=== PATIENT | male | born 1990 | race Caucasian/White ===

== ENCOUNTER 2017-11-18 21:55 | Inpatient (IN) | payer SELFPAY ==
[~2017-11-18] VITALS: Ht 167.6 cm; Wt 59.0 kg
[~2017-11-18 21:55] MED LIST: INSU3INS3
[2017-11-18] MEDS ORDERED: MORPHINE SULFATE 4 MG/ML CPJ (NOT FOR IM USE) IV STA (22:55)
[2017-11-18] MEDS ORDERED: ONDANSETRON HCL 4MG/2ML VIAL IV STA (22:55)
[2017-11-18] MEDS ORDERED: PANTOPRAZOLE SODIUM 40 MG/VIAL IV STA (22:55)
[2017-11-18] MEDS ORDERED: SODIUM CHLORIDE 0.9% 1,000 ML IV ONE (22:55)
[2017-11-18] MEDS ORDERED: OCTREOTIDE ACETATE 50 MCG/ML 1ML IV ONE (23:00)
[2017-11-19 00:26] LABS: BASOPHILS % 0.3 % (0.0-2.0); HEMATOCRIT. 44.2 % (42.0-52.0); HEMOGLOBIN. 15.4 g/dL (14.0-18.0); LYMPHOCYTES % 11.2 % (20.0-50.0); MEAN CORPUSCULAR HEMOGLOBIN 28.4 pg (28.0-32.0); MEAN CORPUSCULAR VOLUME 81.4 fL (80.0-94.0); MEAN PLATELET VOLUME 7.6 fl (7.4-10.4); MONOCYTES % 2.5 % (2.0-8.0); PLATELET 410 x1000/uL (130-400); RED BLOOD CELL COUNT 5.43 mill/uL (4.7-6.1); RED CELL DISTRIBUTION WIDTH 13.6 % (11.6-14.6)
[2017-11-19 00:31] LABS: CHLORIDE 92 mEq/L (98-107)
[2017-11-19 00:35] LABS: ETHANOL BLOOD < 10 mg/dL
[2017-11-19 00:41] LABS: BETA HYDROXYBUTYRATE 1.8 mMol/L (0.0-0.3)
[2017-11-19 01:41] LABS: *AMPHETAMINES SCREEN URINE NEGATIVE (NEGATIVE); *BARBITURATES SCREEN URINE NEGATIVE (NEGATIVE); *BENZODIAZEPINES SCREEN URINE NEGATIVE (NEGATIVE)
[2017-11-19 01:42] LABS: *COCAINE SCREEN URINE NEGATIVE (NEGATIVE); CANNABINOID URINE SCREEN NEGATIVE (NEGATIVE); METHADONE URINE SCREEN NEGATIVE (NEGATIVE); OPIATES URINE SCREEN NEGATIVE (NEGATIVE); PHENCYCLIDINE URINE SCREEN NEGATIVE (NEGATIVE)
[2017-11-19] MEDS ORDERED: SODIUM CHLORIDE 0.9% 1000ML BAG (SEPSIS BOLUS) IV ONE (02:15)
[2017-11-19] MEDS ORDERED: INSULIN REGULAR (HUMULIN R) 300UNITS/3ML IV ONE (02:15)
[2017-11-19 08:00] VITALS: BP 149/96
[2017-11-19] MEDS ORDERED: DEXTROSE 50% WATER 50ML SYRINGE IV PRN (08:30)
[2017-11-19] MEDS ORDERED: ACETAMINOPHEN 325MG TABLET PO PRN (08:30)
[2017-11-19] MEDS ORDERED: CLONIDINE 0.1MG TABLET PO PRN (08:30)
[2017-11-19] MEDS ORDERED: ACETAMINOPHEN 650MG SUPP PR PRN (08:30)
[2017-11-19] MEDS ORDERED: IPRATROPIUM/ALBUTEROL 0.5-3(2.5)MG/3ML NEB INH PRN (08:30)
[2017-11-19] MEDS ORDERED: DIPHENHYDRAMINE 50MG/ML VIAL IV PRN (08:30)
[2017-11-19] MEDS ORDERED: NA PHOS,M-B/NA PHOS,DI-BA ENEMA 118ML PR PRN (08:30)
[2017-11-19] MEDS ORDERED: ONDANSETRON HCL 4MG/2ML VIAL IV PRN (08:30)
[2017-11-19] MEDS ORDERED: GUAIFENESIN 200MG/10ML SUGAR FREE UDC PO PRN (08:30)
[2017-11-19] MEDS ORDERED: ACETAMINOPHEN 650MG/20.3ML UDC GT PRN (08:30)
[2017-11-19] MEDS ORDERED: MAGNESIUM/ALUMINUM HYDROXIDE/SIMETHICONE 30ML UDC PO PRN (08:30)
[2017-11-19 09:11] LABS: BASOPHILS % 0.4 % (0.0-2.0); EOSINOPHILS % 0.1 % (0.0-5.0); HEMATOCRIT. 40.9 % (42.0-52.0); LYMPHOCYTES % 19.5 % (20.0-50.0); MEAN CORPUSCULAR HEMOGLOBIN 27.9 pg (28.0-32.0); MEAN CORPUSCULAR VOLUME 81.6 fL (80.0-94.0); MEAN PLATELET VOLUME 7.3 fl (7.4-10.4); MONOCYTES % 6.2 % (2.0-8.0); NEUTROPHILS % 73.8 % (40.0-76.0); PLATELET 363 x1000/uL (130-400); RED BLOOD CELL COUNT 5.01 mill/uL (4.7-6.1); RED CELL DISTRIBUTION WIDTH 13.6 % (11.6-14.6)
[2017-11-19] MEDS ORDERED: DOCUSATE SODIUM 100MG CAPSULE PO PRN (09:15)
[2017-11-19] MEDS: HYDROCODONE/ACETAMINOPHEN 5/325MG TABLET PO PRN ×2 (09:17→16:00)
[2017-11-19] MEDS: BLOOD SUGAR DIAGNOSTIC STRIP TEST SCH ×4 (09:21→22:41)
[2017-11-19 09:24] LABS: CHLORIDE 99 mEq/L (98-107)
[2017-11-19] MEDS: INSULIN LISPRO 100 UNITS/ML SUBCUT SCH ×4 (09:38→21:00)
[2017-11-19] MEDS: SODIUM CHLORIDE 0.45% 1,000 ML IV SCH (09:55)
[2017-11-19 10:00] VITALS: BP 149/96
[2017-11-19 12:00] VITALS: BP 140/80
[2017-11-19] MEDS: SODIUM CHLORIDE 0.9% INJ 3ML FLUSH IVF SCH ×2 (14:00→22:43)
[2017-11-19 16:00] VITALS: BP 130/70
[2017-11-19] MEDS: PANTOPRAZOLE SODIUM 40 MG/VIAL IV SCH (17:39)
[2017-11-19] MEDS: METOCLOPRAMIDE HCL 10MG/2ML VIAL IV SCH ×2 (18:26→23:33)
[2017-11-19 20:00] VITALS: BP 104/70
[2017-11-20] VITALS: BP 103/89
[2017-11-20 04:00] VITALS: BP 148/93
[2017-11-20] MEDS: SODIUM CHLORIDE 0.9% INJ 3ML FLUSH IVF SCH (05:46)
[2017-11-20] MEDS: HYDROCODONE/ACETAMINOPHEN 5/325MG TABLET PO PRN ×2 (05:46→12:42)
[2017-11-20] MEDS: METOCLOPRAMIDE HCL 10MG/2ML VIAL IV SCH ×2 (05:46→12:40)
[2017-11-20 06:13] LABS: BASOPHILS % 0.5 % (0.0-2.0); EOSINOPHILS % 0.3 % (0.0-5.0); HEMATOCRIT. 41.5 % (42.0-52.0); HEMOGLOBIN. 14.1 g/dL (14.0-18.0); LYMPHOCYTES % 27.7 % (20.0-50.0); MEAN CORPUSCULAR HEMOGLOBIN 27.8 pg (28.0-32.0); MEAN CORPUSCULAR VOLUME 81.8 fL (80.0-94.0); MEAN PLATELET VOLUME 7.5 fl (7.4-10.4); MONOCYTES % 6.3 % (2.0-8.0); NEUTROPHILS % 65.2 % (40.0-76.0); PLATELET 336 x1000/uL (130-400); RED BLOOD CELL COUNT 5.07 mill/uL (4.7-6.1); RED CELL DISTRIBUTION WIDTH 13.3 % (11.6-14.6)
[2017-11-20] MEDS: BLOOD SUGAR DIAGNOSTIC STRIP TEST SCH ×2 (07:13→12:26)
[2017-11-20 07:27] LABS: CHLORIDE 94 mEq/L (98-107)
[2017-11-20 07:35] LABS: HDL CHOLESTEROL 51 mg/dL (40-59); LDL CHOLESTEROL 107 mg/dL (5-100)
[2017-11-20 08:00] VITALS: BP 132/90
[2017-11-20] MEDS: INSULIN LISPRO 100 UNITS/ML SUBCUT SCH ×2 (08:19→12:47)
[2017-11-20] MEDS: PANTOPRAZOLE SODIUM 40 MG/VIAL IV SCH (08:20)
[2017-11-20] MEDS: SODIUM CHLORIDE 0.45% 1,000 ML IV SCH (09:33)
[2017-11-20 12:00] VITALS: BP 146/97
[2017-11-20 12:42] VITALS: BP 146/97
== END 2017-11-20 14:50 | disposition left against medical advice (07) | DRG 241 ==
LOC: ER 21:55 → 6EST 11-19 02:32 → EDBEDREQ 11-19 02:40 → ENRESERV 11-19 07:01 → CANBEDREQ 11-19 23:49
PROVIDERS: ADMIT Family Medicine; ATTEND Family Medicine
DX: K29.71 Gastritis, unspecified, with bleeding (principal); K31.84 Gastroparesis; E11.43 Type 2 diabetes mellitus with diabetic autonomic (poly)neuropathy; E86.0 Dehydration; Z79.4 Long term (current) use of insulin; Z53.21 Procedure and treatment not carried out due to patient leaving prior to being seen by health care provider
CPT/HCPCS: 36415; 71045; 74176; 80053; 80061; 80305; 82010; 82962; 83036; 83605; 83690; 83880; 84484; 85025; 85044; 86850; 86900; 93005; 96361; 96374; 96375; 99291; C9113; G0482; J1815; J2270; J2354; J2405; J2765; J7030

== ENCOUNTER 2018-04-04 13:40 | Emergency (ER) | payer MEDICAID ==
[~2018-04-04] VITALS: Ht 172.7 cm; Wt 70.0 kg
[2018-04-04] MEDS ORDERED: METOCLOPRAMIDE HCL 10MG/2ML VIAL IV STA (14:23)
[2018-04-04] MEDS ORDERED: SODIUM CHLORIDE 0.9% 1,000 ML IV ONE (14:23)
[2018-04-04] MEDS ORDERED: FAMOTIDINE 20MG/2ML VIAL IV STA (14:23)
[2018-04-04] MEDS ORDERED: DIPHENHYDRAMINE 50MG/ML VIAL IV ONE (14:30)
[2018-04-04 15:34] LABS: BASOPHILS % 0.4 % (0.0-2.0); EOSINOPHILS % 0.6 % (0.0-5.0); HEMATOCRIT. 41.8 % (42.0-52.0); HEMOGLOBIN. 14.4 g/dL (14.0-18.0); LYMPHOCYTES % 15.2 % (20.0-50.0); MEAN CORPUSCULAR HEMOGLOBIN 28.5 pg (28.0-32.0); MEAN PLATELET VOLUME 7.8 fl (7.4-10.4); MONOCYTES % 5.3 % (2.0-8.0); NEUTROPHILS % 78.5 % (40.0-76.0); PLATELET 356 x1000/uL (130-400); RED BLOOD CELL COUNT 5.04 mill/uL (4.7-6.1); RED CELL DISTRIBUTION WIDTH 13.6 % (11.6-14.6)
[2018-04-04 15:38] LABS: CHLORIDE 96 mEq/L (98-107)
[2018-04-04 15:47] LABS: BETA HYDROXYBUTYRATE 0.1 mMol/L (0.0-0.3)
[2018-04-04] MEDS ORDERED: SODIUM CHLORIDE 0.9% 1000ML BAG (SEPSIS BOLUS) IV ONE (16:00)
[2018-04-04] MEDS ORDERED: KETOROLAC 30MG/ML VIAL IV NR (16:45)
[2018-04-04] MEDS ORDERED: ONDANSETRON HCL 4MG/2ML INJ IV NR (16:45)
[2018-04-04 19:39] LABS: CLARITY URINE CLEAR (CLEAR); COLOR URINE YELLOW (YELLOW); KETONES URINE TRACE (NEGATIVE); LEUKOCYTE ESTERASE URINE NEGATIVE (NEGATIVE); NITRITE URINE NEGATIVE (NEGATIVE); OCCULT BLOOD URINE NEGATIVE (NEGATIVE); PH URINE 7.5 (4.5-8.0); PROTEIN URINE NEGATIVE (NEGATIVE); SPECIFIC GRAVITY URINE 1.038 (1.005-1.030)
[2018-04-04 21:24] VITALS: BP 129/82
== END 2018-04-04 21:28 | disposition home or self-care (01) ==
LOC: ER 13:58
DX: E11.43 Type 2 diabetes mellitus with diabetic autonomic (poly)neuropathy (principal); K31.84 Gastroparesis; E86.0 Dehydration; Z79.4 Long term (current) use of insulin
CPT/HCPCS: 36415; 80053; 81003; 82010; 82962; 83605; 83690; 85025; 96361; 96374; 96375; 99285; J1200; J1885; J2405; J2765; J3490; J7030

== ENCOUNTER 2018-10-22 00:41 | Emergency (ER) | payer SELFPAY ==
[~2018-10-22] VITALS: Ht 172.7 cm; Wt 62.0 kg
[2018-10-22] MEDS ORDERED: ONDANSETRON HCL 4MG/2ML INJ IV STA (01:33)
[2018-10-22] MEDS ORDERED: SODIUM CHLORIDE 0.9% 1,000 ML IV ONE (01:33)
[2018-10-22] MEDS ORDERED: KETAMINE HCL 50 MG/ML 10ML IV ONE (01:45)
[2018-10-22 02:13] LABS: BASOPHILS % 0.3 % (0.0-2.0); EOSINOPHILS % 0.1 % (0.0-5.0); HEMOGLOBIN. 14.2 g/dL (14.0-18.0); LYMPHOCYTES % 18.2 % (20.0-50.0); MEAN CORPUSCULAR HEMOGLOBIN 28.1 pg (28.0-32.0); MEAN CORPUSCULAR VOLUME 83.3 fL (80.0-94.0); MEAN PLATELET VOLUME 7.6 fl (7.4-10.4); MONOCYTES % 6.4 % (2.0-8.0); PLATELET 320 x1000/uL (130-400); RED BLOOD CELL COUNT 5.04 mill/uL (4.7-6.1); RED CELL DISTRIBUTION WIDTH 13.7 % (11.6-14.6)
[2018-10-22 02:14] LABS: CHLORIDE 97 mEq/L (98-107)
[2018-10-22 06:27] VITALS: BP 116/76
== END 2018-10-22 06:30 | disposition home or self-care (01) ==
LOC: ER 00:41
DX: E11.43 Type 2 diabetes mellitus with diabetic autonomic (poly)neuropathy (principal); K31.84 Gastroparesis; Z79.4 Long term (current) use of insulin
CPT/HCPCS: 36415; 80053; 82962; 83690; 85025; 96361; 96374; 96375; 99283; J2405; J3490; J7030; Z7610

== ENCOUNTER 2021-03-29 02:41 | Emergency (ER) | payer MEDICAID ==
[~2021-03-29] VITALS: Ht 172.7 cm; Wt 80.0 kg
[2021-03-29] MEDS ORDERED: MORPHINE SULFATE 4 MG/ML CPJ (NOT FOR IM USE) IV STA (03:20)
[2021-03-29] MEDS ORDERED: ONDANSETRON HCL 4MG/2ML INJ IV STA (03:20)
[2021-03-29] MEDS ORDERED: SODIUM CHLORIDE 0.9% 1,000 ML IV ONE ×2 (03:30→04:30)
[2021-03-29 03:38] LABS: BASOPHILS % 0.3 % (0.0-2.0); EOSINOPHILS % 0.3 % (0.0-5.0); HEMATOCRIT. 41.9 % (42.0-52.0); HEMOGLOBIN. 13.7 g/dL (14.0-18.0); LYMPHOCYTES % 25.2 % (20.0-50.0); MEAN CORPUSCULAR HEMOGLOBIN 26.2 pg (28.0-32.0); MEAN CORPUSCULAR VOLUME 80.2 fL (80.0-94.0); MEAN PLATELET VOLUME 7.7 fl (7.4-10.4); MONOCYTES % 4.7 % (2.0-8.0); NEUTROPHILS % 69.5 % (40.0-76.0); PLATELET 314 x1000/uL (130-400); RED BLOOD CELL COUNT 5.22 mill/uL (4.7-6.1); RED CELL DISTRIBUTION WIDTH 14.5 % (11.6-14.6)
[2021-03-29 03:43] LABS: CHLORIDE 97 mEq/L (98-107)
[2021-03-29 03:48] LABS: BG BASE EXCESS 2.8 mmol/L (-2.0-2.0); BG CARBOXYHEMOGLOBIN 0.8 % (0.5-1.5); BG HCO3 ACT 27.8 mmol/L (22.0-26.0); BG METHEMOGLOBIN 0.3 % (0.0-1.5); BG OXYGEN SATURATION 94.9 % (92.0-98.5); BG OXYHEMOGLOBIN 93.9 % (94.0-97.0); BG PCO2 44.2 mmHg (35.0-45.0); BG PH 7.417 (7.350-7.450); BG PO2 75.4 mmHg (75.0-100.0); BG SAMPLE SITE RIGHT RADIAL; BG TOTAL HEMOGLOBIN 14.4 g/dL (12.0-18.0); BG VENT MODE ROOM AIR
[2021-03-29] MEDS ORDERED: MORPHINE SULFATE 2 MG/ML CPJ (NOT FOR IM USE) IV SCH (04:00)
[2021-03-29] MEDS ORDERED: INSULIN REGULAR (HUMULIN R) 300UNITS/3ML VIAL IV ONE (04:30)
[2021-03-29] MEDS ORDERED: ONDANSETRON HCL 4MG/2ML INJ IV ONE (05:45)
[2021-03-29 06:44] VITALS: BP 169/99
== END 2021-03-29 07:16 | disposition home or self-care (01) ==
LOC: ER 02:41
DX: R11.2 Nausea with vomiting, unspecified (principal); R10.84 Generalized abdominal pain; E11.9 Type 2 diabetes mellitus without complications
CPT/HCPCS: 36415; 36600; 80053; 82375; 82805; 82962; 83690; 85025; 93005; 96361; 96374; 96375; 96376; 99284; J1815; J2270; J2405; J7030

== ENCOUNTER 2021-04-01 12:45 | Inpatient (IN) | payer MEDICAID, OTHER ==
[~2021-04-01] VITALS: Ht 167.6 cm; Wt 67.6 kg
[2021-04-01] MEDS ORDERED: ONDANSETRON HCL 4MG/2ML INJ IV STA (13:13)
[2021-04-01] MEDS ORDERED: MORPHINE SULFATE 4 MG/ML CPJ (NOT FOR IM USE) IV STA (13:13)
[2021-04-01] MEDS ORDERED: SODIUM CHLORIDE 0.9% 1,000 ML IV ONE (13:15)
[2021-04-01 13:59] LABS: BASOPHILS % 0.3 % (0.0-2.0); EOSINOPHILS % 0.4 % (0.0-5.0); HEMATOCRIT. 42.8 % (42.0-52.0); HEMOGLOBIN. 14.4 g/dL (14.0-18.0); LYMPHOCYTES % 31.5 % (20.0-50.0); MEAN CORPUSCULAR HEMOGLOBIN 26.4 pg (28.0-32.0); MEAN CORPUSCULAR VOLUME 78.7 fL (80.0-94.0); MEAN PLATELET VOLUME 7.4 fl (7.4-10.4); MONOCYTES % 6.4 % (2.0-8.0); NEUTROPHILS % 61.4 % (40.0-76.0); PLATELET 276 x1000/uL (130-400); RED BLOOD CELL COUNT 5.45 mill/uL (4.7-6.1); RED CELL DISTRIBUTION WIDTH 13.8 % (11.6-14.6)
[2021-04-01] MEDS ORDERED: MORPHINE SULFATE 2 MG/ML CPJ (NOT FOR IM USE) IV STA (14:04)
[2021-04-01 14:05] LABS: CHLORIDE 95 mEq/L (98-107)
[2021-04-01 14:10] LABS: PROTHROMBIN TIME 10.5 sec (9.6-11.0)
[2021-04-01 15:22] LABS: CLARITY URINE CLEAR (CLEAR); COLOR URINE YELLOW (YELLOW); KETONES URINE NEGATIVE (NEGATIVE); LEUKOCYTE ESTERASE URINE NEGATIVE (NEGATIVE); NITRITE URINE NEGATIVE (NEGATIVE); OCCULT BLOOD URINE TRACE (NEGATIVE); PROTEIN URINE NEGATIVE (NEGATIVE); SPECIFIC GRAVITY URINE 1.033 (1.005-1.030)
[2021-04-01] MEDS ORDERED: MORPHINE SULFATE 4 MG/ML CPJ (NOT FOR IM USE) IV ONE (15:30)
[2021-04-01] MEDS ORDERED: HYDRALAZINE 20MG/ML VIAL IV ONE (15:30)
[2021-04-01] MEDS ORDERED: DIPHENHYDRAMINE 50MG CAPSULE PO NR (16:00)
[2021-04-01] MEDS ORDERED: DIPHENHYDRAMINE 50MG/ML VIAL IV NR (16:45)
[2021-04-01] MEDS: MORPHINE SULFATE 2 MG/ML CPJ (NOT FOR IM USE) IV PRN (16:54)
[2021-04-01] MEDS ORDERED: NALOXONE HCL 0.4MG/ML VIAL IV PRN (22:30)
[2021-04-02] MEDS ORDERED: INSULIN LISPRO 100 UNITS/ML SUBCUT NR (00:45)
[2021-04-02] MEDS: MORPHINE SULFATE 2 MG/ML CPJ (NOT FOR IM USE) IV PRN ×2 (01:06→05:21)
[2021-04-02 02:00] VITALS: BP 176/98
[2021-04-02] MEDS ORDERED: ONDANSETRON HCL 4MG TABLET PO PRN (02:45)
[2021-04-02] MEDS ORDERED: DEXTROSE 50% WATER 50ML SYRINGE IV PRN ×2 (02:45→03:00)
[2021-04-02] MEDS ORDERED: CLONIDINE 0.1MG TABLET PO PRN (03:15)
[2021-04-02 04:00] VITALS: BP 171/99
[2021-04-02] MEDS: BLOOD SUGAR DIAGNOSTIC STRIP TEST SCH ×2 (05:21→12:47)
[2021-04-02] MEDS: INSULIN LISPRO 100 UNITS/ML SUBCUT SCH ×2 (05:21→12:47)
[2021-04-02] MEDS: METOCLOPRAMIDE 10MG/10 ML UDC PO SCH ×2 (05:21→12:10)
[2021-04-02] MEDS ORDERED: BLOOD SUGAR DIAGNOSTIC STRIP TEST SCH (07:10)
[2021-04-02 08:30] VITALS: BP 142/87
[2021-04-02] MEDS ORDERED: INSULIN GLARGINE UD 100 UNITS/ML SYR SUBCUT SCH ×2 (10:00→22:00)
[2021-04-02 10:29] LABS: BASOPHILS % 0.3 % (0.0-2.0); EOSINOPHILS % 0.5 % (0.0-5.0); HEMATOCRIT. 40.4 % (42.0-52.0); HEMOGLOBIN. 13.5 g/dL (14.0-18.0); LYMPHOCYTES % 39.3 % (20.0-50.0); MEAN CORPUSCULAR HEMOGLOBIN 26.7 pg (28.0-32.0); MEAN CORPUSCULAR VOLUME 80.1 fL (80.0-94.0); MEAN PLATELET VOLUME 7.4 fl (7.4-10.4); MONOCYTES % 7.1 % (2.0-8.0); NEUTROPHILS % 52.8 % (40.0-76.0); PLATELET 276 x1000/uL (130-400); RED BLOOD CELL COUNT 5.05 mill/uL (4.7-6.1); RED CELL DISTRIBUTION WIDTH 14.1 % (11.6-14.6)
[2021-04-02] MEDS ORDERED: TRAMADOL 50MG TABLET PO PRN (11:15)
[2021-04-02 14:08] VITALS: BP 130/69
== END 2021-04-02 15:15 | disposition home or self-care (01) | DRG 48 ==
LOC: ER 12:45 → MICUSO 15:10 → EDBEDREQ 15:13 → EDBEDREQTM 15:13 → 8WST 22:17
PROVIDERS: ADMIT Internal Medicine; ATTEND Internal Medicine
DX: E11.43 Type 2 diabetes mellitus with diabetic autonomic (poly)neuropathy (principal); E87.1 Hypo-osmolality and hyponatremia; E87.8 Other disorders of electrolyte and fluid balance, not elsewhere classified; K31.84 Gastroparesis; E11.65 Type 2 diabetes mellitus with hyperglycemia; I16.0 Hypertensive urgency
CPT/HCPCS: 36415; 74176; 80053; 80061; 81003; 82962; 83036; 85025; 93005; 99285; J0360; J1200; J1815; J2270; J2405; J7030; J8597; Q0163

== ENCOUNTER 2021-04-08 09:50 | Emergency (ER) | payer MEDICAID ==
[~2021-04-08] VITALS: Ht 167.6 cm; Wt 68.0 kg
[2021-04-08] MEDS ORDERED: ONDANSETRON HCL 4MG/2ML INJ IV STA (10:12)
[2021-04-08] MEDS ORDERED: MORPHINE SULFATE 4 MG/ML CPJ (NOT FOR IM USE) IV STA (10:12)
[2021-04-08] MEDS ORDERED: SODIUM CHLORIDE 0.9% 1,000 ML IV ONE (10:15)
[2021-04-08 10:39] LABS: CHLORIDE 93 mEq/L (98-107)
[2021-04-08 10:43] LABS: ETHANOL BLOOD < 10 mg/dL
[2021-04-08 10:45] LABS: BASOPHILS % 0.5 % (0.0-2.0); EOSINOPHILS % 0.9 % (0.0-5.0); HEMATOCRIT. 39.7 % (42.0-52.0); HEMOGLOBIN. 13.1 g/dL (14.0-18.0); MEAN CORPUSCULAR HEMOGLOBIN 26.4 pg (28.0-32.0); MEAN PLATELET VOLUME 7.5 fl (7.4-10.4); MONOCYTES % 4.6 % (2.0-8.0); PLATELET 322 x1000/uL (130-400); RED BLOOD CELL COUNT 4.96 mill/uL (4.7-6.1); RED CELL DISTRIBUTION WIDTH 14.3 % (11.6-14.6)
[2021-04-08 10:56] VITALS: BP 165/98
[2021-04-08 11:22] LABS: CLARITY URINE CLEAR (CLEAR); COLOR URINE YELLOW (YELLOW); KETONES URINE NEGATIVE (NEGATIVE); LEUKOCYTE ESTERASE URINE NEGATIVE (NEGATIVE); NITRITE URINE NEGATIVE (NEGATIVE); OCCULT BLOOD URINE TRACE (NEGATIVE); PROTEIN URINE NEGATIVE (NEGATIVE); SPECIFIC GRAVITY URINE 1.025 (1.005-1.030)
[2021-04-08] MEDS ORDERED: INSULIN REGULAR (HUMULIN R) 300UNITS/3ML VIAL SUBCUT ONE (11:45)
[2021-04-08] MEDS ORDERED: MORPHINE SULFATE 2 MG/ML CPJ (NOT FOR IM USE) IV ONE (11:45)
[2021-04-08 11:46] LABS: BG BASE EXCESS 0.2 mmol/L (-2.0-2.0); BG CARBOXYHEMOGLOBIN 0.6 % (0.5-1.5); BG DEOXYHEMOGLOBIN 2.6 % (0.0-5.0); BG FRACTION INSPIRED OXYGEN 21; BG HCO3 ACT 25.5 mmol/L (22.0-26.0); BG METHEMOGLOBIN 0.3 % (0.0-1.5); BG OXYGEN SATURATION 97.4 % (92.0-98.5); BG OXYHEMOGLOBIN 96.5 % (94.0-97.0); BG PCO2 43.6 mmHg (35.0-45.0); BG PH 7.385 (7.350-7.450); BG PO2 97.6 mmHg (75.0-100.0); BG SAMPLE SITE RIGHT RADIAL; BG TOTAL HEMOGLOBIN 13.7 g/dL (12.0-18.0); BG VENT MODE ROOM AIR
[2021-04-08 11:56] LABS: *BENZODIAZEPINES SCREEN URINE NEGATIVE (NEGATIVE); *COCAINE SCREEN URINE NEGATIVE (NEGATIVE); METHADONE URINE SCREEN NEGATIVE (NEGATIVE); OPIATES URINE SCREEN NEGATIVE (NEGATIVE); PHENCYCLIDINE URINE SCREEN NEGATIVE (NEGATIVE)
[2021-04-08 11:58] LABS: *AMPHETAMINES SCREEN URINE NEGATIVE (NEGATIVE); *BARBITURATES SCREEN URINE NEGATIVE (NEGATIVE); CANNABINOID URINE SCREEN NEGATIVE (NEGATIVE)
== END 2021-04-08 13:30 | disposition left against medical advice (07) ==
LOC: ER 10:00
DX: R10.9 Unspecified abdominal pain (principal); E10.65 Type 1 diabetes mellitus with hyperglycemia; E10.43 Type 1 diabetes mellitus with diabetic autonomic (poly)neuropathy; K31.84 Gastroparesis; E87.1 Hypo-osmolality and hyponatremia; Z79.4 Long term (current) use of insulin; Z88.8 Allergy status to other drugs, medicaments and biological substances
CPT/HCPCS: 36415; 36600; 80053; 80305; 80320; 81003; 82010; 82375; 82805; 83690; 85025; 93005; 96374; 96375; 99284; J2270; J2405; J7030; Z7610; G0480

== ENCOUNTER 2021-04-08 18:10 | Inpatient (IN) | payer MEDICAID ==
[~2021-04-08] VITALS: Ht 167.6 cm; Wt 59.9 kg
[2021-04-08] MEDS ORDERED: KETOROLAC 15MG/ML VIAL IV ONE ×2 (19:00→21:15)
[2021-04-08] MEDS ORDERED: SODIUM CHLORIDE 0.9% 1,000 ML IV ONE ×2 (19:00)
[2021-04-08 19:30] LABS: BASOPHILS % 0.5 % (0.0-2.0); EOSINOPHILS % 0.9 % (0.0-5.0); HEMATOCRIT. 43.8 % (42.0-52.0); HEMOGLOBIN. 14.6 g/dL (14.0-18.0); MEAN CORPUSCULAR HEMOGLOBIN 26.5 pg (28.0-32.0); MEAN CORPUSCULAR VOLUME 79.7 fL (80.0-94.0); MEAN PLATELET VOLUME 7.6 fl (7.4-10.4); MONOCYTES % 7.2 % (2.0-8.0); NEUTROPHILS % 60.4 % (40.0-76.0); PLATELET 349 x1000/uL (130-400); RED CELL DISTRIBUTION WIDTH 14.2 % (11.6-14.6)
[2021-04-08 19:36] LABS: CHLORIDE 92 mEq/L (98-107)
[2021-04-08 19:40] LABS: ETHANOL BLOOD < 10 mg/dL
[2021-04-08 19:44] LABS: BETA HYDROXYBUTYRATE 0.5 mMol/L (0.0-0.3)
[2021-04-08] MEDS ORDERED: INSULIN REGULAR (HUMULIN R) 300UNITS/3ML VIAL SUBCUT NR (21:14)
[2021-04-08] MEDS ORDERED: HYDRALAZINE 20MG/ML VIAL IV ONE (21:15)
[2021-04-08] MEDS ORDERED: INSULIN REGULAR (HUMULIN R) UD 100 UNITS/ML SYR SUBCUT ONE (21:15)
[2021-04-08 23:31] LABS: CLARITY URINE CLEAR (CLEAR); COLOR URINE YELLOW (YELLOW); KETONES URINE 1+ (NEGATIVE); LEUKOCYTE ESTERASE URINE NEGATIVE (NEGATIVE); NITRITE URINE NEGATIVE (NEGATIVE); OCCULT BLOOD URINE TRACE (NEGATIVE); PH URINE 7.5 (4.5-8.0); PROTEIN URINE TRACE (NEGATIVE); SPECIFIC GRAVITY URINE 1.031 (1.005-1.030)
[2021-04-08 23:51] LABS: *AMPHETAMINES SCREEN URINE NEGATIVE (NEGATIVE); *BARBITURATES SCREEN URINE NEGATIVE (NEGATIVE); *BENZODIAZEPINES SCREEN URINE NEGATIVE (NEGATIVE); *COCAINE SCREEN URINE NEGATIVE (NEGATIVE); METHADONE URINE SCREEN NEGATIVE (NEGATIVE); OPIATES URINE SCREEN PRESUMTIVE POSITIVE (NEGATIVE)
[2021-04-08 23:52] LABS: CANNABINOID URINE SCREEN NEGATIVE (NEGATIVE); PHENCYCLIDINE URINE SCREEN NEGATIVE (NEGATIVE)
[2021-04-09] MEDS: MORPHINE SULFATE 2 MG/ML CPJ (NOT FOR IM USE) IV PRN ×2 (00:31→04:49)
[2021-04-09] MEDS ORDERED: HYDRALAZINE 20MG/ML VIAL IV ONE (08:15)
[2021-04-09] MEDS ORDERED: NALOXONE HCL 0.4MG/ML VIAL IV PRN (08:15)
[2021-04-09 09:00] VITALS: BP 168/108
[2021-04-09] MEDS ORDERED: DEXTROSE 50% WATER 50ML SYRINGE IV PRN (09:00)
[2021-04-09] MEDS ORDERED: ACETAMINOPHEN 325MG TABLET PO PRN (09:00)
[2021-04-09] MEDS ORDERED: ONDANSETRON HCL 4MG/2ML INJ IV PRN (09:00)
[2021-04-09] MEDS ORDERED: HYDRALAZINE 10 MG in SODIUM CHLORIDE 0.9% 49.5 ML IV SCH (09:30)
[2021-04-09] MEDS ORDERED: INSULIN GLARGINE UD 100 UNITS/ML SYR SUBCUT NR (11:00)
[2021-04-09 12:00] VITALS: BP 164/108
[2021-04-09] MEDS: BLOOD SUGAR DIAGNOSTIC STRIP TEST SCH ×3 (12:42→21:00)
[2021-04-09] MEDS: INSULIN LISPRO 100 UNITS/ML SUBCUT SCH ×3 (13:04→21:00)
[2021-04-09 16:00] VITALS: BP 142/85
[2021-04-09] MEDS: AMLODIPINE 10MG TABLET PO SCH ×2 (16:30→18:15)
[2021-04-09] MEDS ORDERED: INFLUENZA VACCINE 05/PF 0.5 ML SYRINGE IM ONE (17:00)
[2021-04-09] MEDS ORDERED: MORPHINE SULFATE 2 MG/ML CPJ (NOT FOR IM USE) IV SCH (19:00)
[2021-04-09 20:00] VITALS: BP 134/89
[2021-04-09] MEDS: INSULIN GLARGINE UD 100 UNITS/ML SYR SUBCUT SCH (22:00)
[2021-04-10] VITALS: BP 128/80
[2021-04-10] MEDS: TRAMADOL 50MG TABLET PO PRN ×3 (03:23→12:55)
[2021-04-10 04:00] VITALS: BP 117/76
[2021-04-10] MEDS: INSULIN LISPRO 100 UNITS/ML SUBCUT SCH ×3 (07:50→17:38)
[2021-04-10] MEDS: BLOOD SUGAR DIAGNOSTIC STRIP TEST SCH ×3 (08:07→17:38)
[2021-04-10] MEDS: AMLODIPINE 10MG TABLET PO SCH (09:00)
[2021-04-10] MEDS: INSULIN GLARGINE UD 100 UNITS/ML SYR SUBCUT SCH (10:00)
[2021-04-10] MEDS ORDERED: LANTUSUD SUBCUT (11:28)
[2021-04-10 12:00] VITALS: BP 164/105
[2021-04-10] MEDS ORDERED: CLONIDINE 0.1MG TABLET PO PRN (12:45)
[2021-04-10] MEDS ORDERED: AMLO10TA80 PO (15:23)
[2021-04-10 16:00] VITALS: BP 125/83
[2021-04-10 18:12] VITALS: BP 125/83
== END 2021-04-10 20:47 | disposition home or self-care (01) | DRG 48 ==
LOC: ER 18:10 → MICUSO 23:45 → 6EST 04-09 08:00
PROVIDERS: ADMIT Internal Medicine; ATTEND Internal Medicine
DX: E10.43 Type 1 diabetes mellitus with diabetic autonomic (poly)neuropathy (principal); E87.1 Hypo-osmolality and hyponatremia; E87.8 Other disorders of electrolyte and fluid balance, not elsewhere classified; E10.65 Type 1 diabetes mellitus with hyperglycemia; K31.84 Gastroparesis; I10 Essential (primary) hypertension; K21.9 Gastro-esophageal reflux disease without esophagitis; Z20.822 Contact with and (suspected) exposure to COVID-19
CPT/HCPCS: 36415; 71045; 74176; 80053; 80305; 80320; 81003; 82010; 82962; 85025; 87426; 90686; 93005; 99285; J0360; J1815; J1885; J2270; J2405; J7030; G0480

== ENCOUNTER 2021-04-14 09:19 | Inpatient (IN) | payer MEDICAID ==
[~2021-04-14] VITALS: Ht 170.2 cm; Wt 64.0 kg
[~2021-04-14 09:19] MED LIST changes: +AMLO10TA80 PO; -INSU3INS3; +LANTUSUD SUBCUT
[2021-04-14] MEDS ORDERED: ONDANSETRON HCL 4MG/2ML INJ IV STA (09:25)
[2021-04-14] MEDS ORDERED: MORPHINE SULFATE 4 MG/ML CPJ (NOT FOR IM USE) IV STA (09:25)
[2021-04-14] MEDS ORDERED: SODIUM CHLORIDE 0.9% 1,000 ML IV ONE (09:30)
[2021-04-14 10:14] LABS: BASOPHILS % 0.3 % (0.0-2.0); EOSINOPHILS % 1.2 % (0.0-5.0); HEMATOCRIT. 40.3 % (42.0-52.0); HEMOGLOBIN. 13.6 g/dL (14.0-18.0); LYMPHOCYTES % 39.4 % (20.0-50.0); MEAN CORPUSCULAR VOLUME 80.4 fL (80.0-94.0); MEAN PLATELET VOLUME 7.4 fl (7.4-10.4); MONOCYTES % 7.1 % (2.0-8.0); PLATELET 328 x1000/uL (130-400); RED BLOOD CELL COUNT 5.01 mill/uL (4.7-6.1); RED CELL DISTRIBUTION WIDTH 14.2 % (11.6-14.6)
[2021-04-14 10:18] LABS: CHLORIDE 97 mEq/L (98-107)
[2021-04-14 10:21] LABS: PROTHROMBIN TIME 10.5 sec (9.6-11.0)
[2021-04-14 10:22] LABS: ETHANOL BLOOD < 10 mg/dL
[2021-04-14] MEDS ORDERED: HYDRALAZINE 20MG/ML VIAL IV ONE (10:45)
[2021-04-14] MEDS ORDERED: LORAZEPAM 2MG/ML CPJ IV ONE (10:45)
[2021-04-14] MEDS ORDERED: HYDRALAZINE 20MG/ML VIAL IV PRN (12:15)
[2021-04-14] MEDS ORDERED: CLONIDINE 0.1MG TABLET PO PRN (12:15)
[2021-04-14] MEDS ORDERED: ONDANSETRON HCL 4MG/2ML INJ IV PRN (12:15)
[2021-04-14] MEDS ORDERED: ACETAMINOPHEN 650MG/20.3ML UDC GT PRN (12:15)
[2021-04-14] MEDS: PANTOPRAZOLE SODIUM 40 MG/VIAL IV SCH ×2 (13:02→14:53)
[2021-04-14] MEDS: SODIUM CHLORIDE 0.45% 1,000 ML IV SCH ×2 (13:02→22:07)
[2021-04-14 13:17] LABS: CLARITY URINE CLEAR (CLEAR); COLOR URINE YELLOW (YELLOW); KETONES URINE TRACE (NEGATIVE); LEUKOCYTE ESTERASE URINE NEGATIVE (NEGATIVE); NITRITE URINE NEGATIVE (NEGATIVE); OCCULT BLOOD URINE TRACE (NEGATIVE); PROTEIN URINE NEGATIVE (NEGATIVE); UROBILINOGEN URINE 0.2 E.U./dL (0.2-1.0)
[2021-04-14 13:29] LABS: *AMPHETAMINES SCREEN URINE NEGATIVE (NEGATIVE); *BARBITURATES SCREEN URINE NEGATIVE (NEGATIVE); *BENZODIAZEPINES SCREEN URINE NEGATIVE (NEGATIVE); *COCAINE SCREEN URINE NEGATIVE (NEGATIVE)
[2021-04-14 13:30] LABS: METHADONE URINE SCREEN NEGATIVE (NEGATIVE); OPIATES URINE SCREEN PRESUMTIVE POSITIVE (NEGATIVE); PHENCYCLIDINE URINE SCREEN NEGATIVE (NEGATIVE)
[2021-04-14 13:37] LABS: CANNABINOID URINE SCREEN NEGATIVE (NEGATIVE)
[2021-04-14] MEDS: AMLODIPINE 10MG TABLET PO SCH (14:45)
[2021-04-14] MEDS ORDERED: DEXTROSE 50% WATER 50ML SYRINGE IV PRN (16:45)
[2021-04-14] MEDS ORDERED: HYDROMORPHONE HCL/PF 1MG/ML CPJ IV PRN (16:45)
[2021-04-14] MEDS: INSULIN LISPRO (HIGH DOSE) 100 UNITS/ML SUBCUT SCH ×2 (16:58→21:00)
[2021-04-14] MEDS ORDERED: HYDROMORPHONE HCL/PF 2MG/ML CPJ IV PRN (17:00)
[2021-04-14 17:05] VITALS: BP 151/101
[2021-04-14 20:00] VITALS: BP 130/87
[2021-04-14] MEDS: BLOOD SUGAR DIAGNOSTIC STRIP TEST SCH (21:50)
[2021-04-15] VITALS: BP 121/81
[2021-04-15 04:00] VITALS: BP 106/64
[2021-04-15 06:45] LABS: CHLORIDE 98 mEq/L (98-107)
[2021-04-15 06:54] LABS: BASOPHILS % 0.6 % (0.0-2.0); EOSINOPHILS % 1.6 % (0.0-5.0); HEMATOCRIT. 36.4 % (42.0-52.0); HEMOGLOBIN. 12.2 g/dL (14.0-18.0); LYMPHOCYTES % 47.2 % (20.0-50.0); MEAN CORPUSCULAR HEMOGLOBIN 26.8 pg (28.0-32.0); MEAN CORPUSCULAR VOLUME 79.8 fL (80.0-94.0); MEAN PLATELET VOLUME 7.6 fl (7.4-10.4); MONOCYTES % 7.5 % (2.0-8.0); NEUTROPHILS % 43.1 % (40.0-76.0); PLATELET 320 x1000/uL (130-400); RED BLOOD CELL COUNT 4.56 mill/uL (4.7-6.1); RED CELL DISTRIBUTION WIDTH 14.1 % (11.6-14.6)
[2021-04-15] MEDS: BLOOD SUGAR DIAGNOSTIC STRIP TEST SCH (07:09)
[2021-04-15 08:30] VITALS: BP 133/90
[2021-04-15] MEDS: INSULIN LISPRO (HIGH DOSE) 100 UNITS/ML SUBCUT SCH (08:46)
[2021-04-15] MEDS: SODIUM CHLORIDE 0.45% 1,000 ML IV SCH (08:47)
[2021-04-15] MEDS: AMLODIPINE 10MG TABLET PO SCH (08:58)
== END 2021-04-15 11:00 | disposition left against medical advice (07) | DRG 48 ==
LOC: ER 09:19 → MICUSO 11:31 → EDBEDREQ 11:33 → EDBEDREQTM 11:33 → 6WST 18:00
PROVIDERS: ADMIT Hospitalist; ATTEND Hospitalist
DX: E11.43 Type 2 diabetes mellitus with diabetic autonomic (poly)neuropathy (principal); I10 Essential (primary) hypertension; K21.9 Gastro-esophageal reflux disease without esophagitis; K31.84 Gastroparesis; Z88.8 Allergy status to other drugs, medicaments and biological substances; Z79.4 Long term (current) use of insulin; Z79.899 Other long term (current) drug therapy; R10.9 Unspecified abdominal pain
CPT/HCPCS: 36415; 71045; 74176; 80053; 80305; 80320; 81003; 82962; 83036; 84484; 85025; 93005; 99291; C9113; J0360; J1170; J1815; J2060; J2270; J2405; J7030; G0480

== ENCOUNTER 2021-04-26 05:34 | Emergency (ER) | payer MEDICAID ==
[~2021-04-26] VITALS: Ht 172.7 cm; Wt 66.0 kg
[2021-04-26] MEDS ORDERED: KETOROLAC 60MG/2ML VIAL IM STA (05:38)
[2021-04-26] MEDS ORDERED: KETOROLAC 30MG/ML VIAL IV STA (05:52)
[2021-04-26] MEDS ORDERED: SODIUM CHLORIDE 0.9% 1,000 ML IV ONE (06:00)
[2021-04-26 06:01] LABS: BASOPHILS % 0.3 % (0.0-2.0); EOSINOPHILS % 1.3 % (0.0-5.0); HEMATOCRIT. 39.5 % (42.0-52.0); HEMOGLOBIN. 13.3 g/dL (14.0-18.0); LYMPHOCYTES % 40.3 % (20.0-50.0); MEAN CORPUSCULAR HEMOGLOBIN 26.7 pg (28.0-32.0); MEAN CORPUSCULAR VOLUME 78.8 fL (80.0-94.0); MEAN PLATELET VOLUME 7.5 fl (7.4-10.4); MONOCYTES % 6.5 % (2.0-8.0); NEUTROPHILS % 51.6 % (40.0-76.0); PLATELET 291 x1000/uL (130-400); RED BLOOD CELL COUNT 5.01 mill/uL (4.7-6.1); RED CELL DISTRIBUTION WIDTH 14.2 % (11.6-14.6)
[2021-04-26 06:06] LABS: CHLORIDE 103 mEq/L (98-107)
[2021-04-26] MEDS: ONDANSETRON HCL 4MG/2ML INJ IV STA ×2 (06:14→06:43)
[2021-04-26] MEDS ORDERED: ONDA4TAB5 MT (08:58)
[2021-04-26 09:15] VITALS: BP 146/82
== END 2021-04-26 09:18 | disposition home or self-care (01) ==
LOC: ER 05:43
DX: R10.33 Periumbilical pain (principal); R11.0 Nausea; E11.9 Type 2 diabetes mellitus without complications
CPT/HCPCS: 36415; 74176; 80053; 83690; 85025; 93005; 96361; 96374; 96375; 99285; J1885; J2405; J7030

== ENCOUNTER 2022-01-04 18:29 | Inpatient (IN) | payer MEDICAID ==
[~2022-01-04] VITALS: Ht 175.3 cm; Wt 67.1 kg
[~2022-01-04 18:29] MED LIST changes: +ONDA4TAB5 MT
[2022-01-04] MEDS ORDERED: ONDANSETRON HCL 4MG/2ML INJ IV STA (18:47)
[2022-01-04] MEDS ORDERED: FAMOTIDINE 20MG/2ML VIAL IV STA (18:47)
[2022-01-04] MEDS ORDERED: SODIUM CHLORIDE 0.9% 1,000 ML IV ONE (19:00)
[2022-01-04] MEDS ORDERED: MORPHINE SULFATE 4 MG/ML CPJ (NOT FOR IM USE) IV ONE (20:00)
[2022-01-04 20:01] LABS: HEMATOCRIT. 42.1 % (42.0-52.0); MEAN CORPUSCULAR HEMOGLOBIN 27.5 pg (28.0-32.0); MEAN CORPUSCULAR VOLUME 82.6 fL (80.0-94.0); MEAN PLATELET VOLUME 8.9 fl (7.4-10.4); PLATELET 291 x1000/uL (130-400); RED CELL DISTRIBUTION WIDTH 14.8 % (11.6-14.6)
[2022-01-04 20:09] LABS: CHLORIDE 103 mEq/L (98-107)
[2022-01-04 20:10] LABS: PROTHROMBIN TIME 10.6 sec (9.6-11.0)
[2022-01-04 20:18] LABS: BETA HYDROXYBUTYRATE 2.1 mMol/L (0.0-0.3); ETHANOL BLOOD < 10 mg/dL
[2022-01-04 20:19] LABS: CLARITY URINE CLEAR (CLEAR); COLOR URINE YELLOW (YELLOW); KETONES URINE 2+ (NEGATIVE); LEUKOCYTE ESTERASE URINE NEGATIVE (NEGATIVE); NITRITE URINE NEGATIVE (NEGATIVE); OCCULT BLOOD URINE 2+ (NEGATIVE); PH URINE 5.5 (4.5-8.0); PROTEIN URINE 3+ (NEGATIVE); SPECIFIC GRAVITY URINE 1.035 (1.005-1.030); UROBILINOGEN URINE 0.2 E.U./dL (0.2-1.0)
[2022-01-04 20:28] LABS: *AMPHETAMINES SCREEN URINE NEGATIVE (NEGATIVE); *BARBITURATES SCREEN URINE NEGATIVE (NEGATIVE); *BENZODIAZEPINES SCREEN URINE NEGATIVE (NEGATIVE); *COCAINE SCREEN URINE NEGATIVE (NEGATIVE); CANNABINOID URINE SCREEN NEGATIVE (NEGATIVE); METHADONE URINE SCREEN NEGATIVE (NEGATIVE); OPIATES URINE SCREEN NEGATIVE (NEGATIVE); PHENCYCLIDINE URINE SCREEN NEGATIVE (NEGATIVE)
[2022-01-04 21:51] LABS: PLATELET ESTIMATE NORMAL
[2022-01-04] MEDS ORDERED: INSULIN REGULAR (HUMULIN R) 300UNITS/3ML VIAL SUBCUT NR (22:08)
[2022-01-05] MEDS ORDERED: ONDANSETRON HCL 4MG/2ML INJ IV SCH (04:15)
[2022-01-05] MEDS ORDERED: MORPHINE SULFATE 2 MG/ML CPJ (NOT FOR IM USE) IV SCH (04:15)
[2022-01-05] MEDS ORDERED: ONDANSETRON HCL 4MG/2ML INJ IV PRN (06:45)
[2022-01-05] MEDS ORDERED: NALOXONE HCL 0.4MG/ML VIAL IV PRN (07:00)
[2022-01-05] MEDS: SODIUM CHLORIDE 0.45% 1,000 ML IV SCH ×3 (07:01→22:09)
[2022-01-05] MEDS: MORPHINE SULFATE 2 MG/ML CPJ (NOT FOR IM USE) IV PRN ×2 (08:30→20:15)
[2022-01-05] MEDS: ENOXAPARIN 40MG/0.4ML SYR SUBCUT SCH (09:00)
[2022-01-05 10:07] LABS: BASOPHILS % 0.1 % (0.0-2.0); HEMATOCRIT. 39.4 % (42.0-52.0); HEMOGLOBIN. 12.9 g/dL (14.0-18.0); LYMPHOCYTES % 8.4 % (20.0-50.0); MEAN CORPUSCULAR HEMOGLOBIN 27.2 pg (28.0-32.0); MEAN CORPUSCULAR VOLUME 82.9 fL (80.0-94.0); MEAN PLATELET VOLUME 7.4 fl (7.4-10.4); MONOCYTES % 12.4 % (2.0-8.0); NEUTROPHILS % 79.1 % (40.0-76.0); PLATELET 228 x1000/uL (130-400); RED BLOOD CELL COUNT 4.75 mill/uL (4.7-6.1); RED CELL DISTRIBUTION WIDTH 14.8 % (11.6-14.6)
[2022-01-05 10:11] LABS: CHLORIDE 103 mEq/L (98-107)
[2022-01-05 10:19] LABS: GAMMA GLUTAMYL TRANSPEPTIDASE 26 IU/L (11-50)
[2022-01-05] MEDS: PANTOPRAZOLE SODIUM 40 MG/VIAL IV SCH ×2 (14:56→22:07)
[2022-01-05 17:58] LABS: TOTAL IRON BINDING CAPACITY 329 ug/dL (250-450)
[2022-01-05 18:27] LABS: VITAMIN B12 SERUM 800 pg/mL (211-911)
[2022-01-05 18:28] LABS: FOLIC ACID (FOLATE) SERUM > 20.00 ng/mL (>5.38)
[2022-01-05 21:04] LABS: FERRITIN 36 ng/mL (22-322)
[2022-01-05] MEDS ORDERED: DEXTROSE 50% WATER 50ML SYRINGE IV PRN (21:45)
[2022-01-05 22:00] VITALS: BP 156/77
[2022-01-05] MEDS: DIPHENHYDRAMINE 50MG/ML VIAL IV PRN (22:07)
[2022-01-05] MEDS ORDERED: ONDA4TAB11 PO (22:58)
[2022-01-05] MEDS ORDERED: INSU100V3 SUBCUT ×2 (23:00)
[2022-01-06] VITALS: BP 163/81
[2022-01-06 04:00] VITALS: BP 166/81
[2022-01-06] MEDS: MORPHINE SULFATE 2 MG/ML CPJ (NOT FOR IM USE) IV PRN ×2 (04:38→21:39)
[2022-01-06] MEDS: CLONIDINE 0.1MG TABLET PO PRN ×2 (04:38→14:25)
[2022-01-06] MEDS: DIPHENHYDRAMINE 50MG/ML VIAL IV PRN ×2 (04:51→21:39)
[2022-01-06] MEDS: BLOOD SUGAR DIAGNOSTIC STRIP TEST SCH ×4 (06:02→21:39)
[2022-01-06 06:04] VITALS: BP 152/83
[2022-01-06 08:00] VITALS: BP 201/91
[2022-01-06] MEDS: HYDRALAZINE 20MG/ML VIAL IV PRN (09:40)
[2022-01-06] MEDS: PANTOPRAZOLE SODIUM 40 MG/VIAL IV SCH ×2 (09:42→21:38)
[2022-01-06] MEDS: ENOXAPARIN 40MG/0.4ML SYR SUBCUT SCH (09:43)
[2022-01-06] MEDS: AMLODIPINE 10MG TABLET PO SCH (09:44)
[2022-01-06] MEDS: INSULIN LISPRO 100 UNITS/ML SUBCUT SCH ×4 (09:45→21:37)
[2022-01-06 12:00] VITALS: BP 180/103
[2022-01-06] MEDS: INSULIN GLARGINE 100 UNITS/ML SUBCUT SCH (14:16)
[2022-01-06] MEDS: SODIUM CHLORIDE 0.45% 1,000 ML IV SCH ×2 (14:17→23:38)
[2022-01-06] MEDS: BENAZEPRIL 10MG TABLET PO SCH (14:24)
[2022-01-06] MEDS ORDERED: BENA10TA74 PO (15:29)
[2022-01-06 16:00] VITALS: BP 100/56
[2022-01-06] MEDS: FERROUS SULFATE 325MG TABLET PO SCH (18:13)
[2022-01-07] VITALS: BP 148/87
[2022-01-07 04:00] VITALS: BP 180/103
[2022-01-07] MEDS: MORPHINE SULFATE 2 MG/ML CPJ (NOT FOR IM USE) IV PRN (05:24)
[2022-01-07] MEDS: HYDRALAZINE 20MG/ML VIAL IV PRN (06:40)
[2022-01-07] MEDS: DIPHENHYDRAMINE 50MG/ML VIAL IV PRN (06:40)
[2022-01-07] MEDS: CLONIDINE 0.1MG TABLET PO PRN (06:41)
[2022-01-07] MEDS: BLOOD SUGAR DIAGNOSTIC STRIP TEST SCH ×3 (06:41→17:40)
[2022-01-07 08:00] VITALS: BP 125/68
[2022-01-07] MEDS: PANTOPRAZOLE SODIUM 40 MG/VIAL IV SCH (08:59)
[2022-01-07] MEDS ORDERED: ASCORBIC ACID 500 MG TABLET PO SCH (09:00)
[2022-01-07] MEDS: ENOXAPARIN 40MG/0.4ML SYR SUBCUT SCH (09:00)
[2022-01-07] MEDS: INSULIN GLARGINE 100 UNITS/ML SUBCUT SCH (09:11)
[2022-01-07] MEDS: INSULIN LISPRO 100 UNITS/ML SUBCUT SCH ×3 (09:11→18:10)
[2022-01-07] MEDS: SODIUM CHLORIDE 0.45% 1,000 ML IV SCH (09:14)
[2022-01-07] MEDS: FERROUS SULFATE 325MG TABLET PO SCH ×2 (09:59→17:00)
[2022-01-07] MEDS: BENAZEPRIL 10MG TABLET PO SCH (10:00)
[2022-01-07] MEDS: AMLODIPINE 10MG TABLET PO SCH (10:04)
[2022-01-07 11:33] VITALS: BP 121/69
[2022-01-07 16:30] VITALS: BP 144/88
[2022-01-07 17:44] VITALS: BP 144/88
[2022-01-08] MEDS ORDERED: INSULIN GLARGINE 100 UNITS/ML SUBCUT SCH (10:00)
== END 2022-01-07 18:35 | disposition home or self-care (01) | DRG 48 ==
LOC: ER 18:29 → MICUSO 01-05 00:35 → 7WST 01-05 19:39
PROVIDERS: ADMIT Family Medicine; ATTEND Family Medicine
DX: E10.43 Type 1 diabetes mellitus with diabetic autonomic (poly)neuropathy (principal); E44.1 Mild protein-calorie malnutrition; E10.649 Type 1 diabetes mellitus with hypoglycemia without coma; I10 Essential (primary) hypertension; K31.84 Gastroparesis; E86.0 Dehydration; D64.9 Anemia, unspecified; E61.1 Iron deficiency; Z68.21 Body mass index [BMI] 21.0-21.9, adult; Z88.8 Allergy status to other drugs, medicaments and biological substances; Z59.00 Homelessness unspecified
CPT/HCPCS: 36415; 74176; 76700; 80048; 80053; 80076; 80305; 80320; 81003; 82010; 82248; 82607; 82728; 82746; 82962; 82977; 83540; 83550; 83605; 84484; 85025; 85044; 93005; 99291; C9113; J0360; J1200; J1650; J1815; J2270; J2405; J3490; J7030; G0480

== ENCOUNTER 2022-02-13 16:39 | Inpatient (IN) | payer MEDICAID ==
[~2022-02-13] VITALS: Ht 167.6 cm; Wt 68.0 kg
[~2022-02-13 16:39] MED LIST changes: +BENA10TA74 PO; +INSU100V3 SUBCUT; -LANTUSUD SUBCUT; +ONDA4TAB11 PO; -ONDA4TAB5 MT
[2022-02-13] MEDS ORDERED: ONDANSETRON HCL 4MG/2ML INJ IV STA (18:42)
[2022-02-13] MEDS ORDERED: SODIUM CHLORIDE 0.9% 1,000 ML IV ONE ×2 (18:45→19:15)
[2022-02-13] MEDS ORDERED: KETOROLAC 15MG/ML VIAL IV ONE (20:30)
[2022-02-13] MEDS ORDERED: ACETAMINOPHEN 325MG TABLET PO ONE (21:15)
[2022-02-13 21:44] LABS: HEMATOCRIT. 43.1 % (42.0-52.0); HEMOGLOBIN. 14.3 g/dL (14.0-18.0); MEAN CORPUSCULAR HEMOGLOBIN 27.6 pg (28.0-32.0); MEAN CORPUSCULAR VOLUME 83.3 fL (80.0-94.0); MEAN PLATELET VOLUME 7.5 fl (7.4-10.4); PLATELET 315 x1000/uL (130-400); RED BLOOD CELL COUNT 5.18 mill/uL (4.7-6.1); RED CELL DISTRIBUTION WIDTH 14.5 % (11.6-14.6)
[2022-02-13 21:49] LABS: CHLORIDE 102 mEq/L (98-107)
[2022-02-13 22:00] LABS: BETA HYDROXYBUTYRATE 0.2 mMol/L (0.0-0.3); ETHANOL BLOOD < 10 mg/dL
[2022-02-13 22:34] LABS: PLATELET ESTIMATE NORMAL
[2022-02-13] MEDS ORDERED: ONDANSETRON HCL 4MG/2ML INJ IV ONE (23:30)
[2022-02-14 01:03] LABS: *AMPHETAMINES SCREEN URINE NEGATIVE (NEGATIVE); *BARBITURATES SCREEN URINE NEGATIVE (NEGATIVE); *BENZODIAZEPINES SCREEN URINE NEGATIVE (NEGATIVE); *COCAINE SCREEN URINE NEGATIVE (NEGATIVE); CANNABINOID URINE SCREEN NEGATIVE (NEGATIVE); METHADONE URINE SCREEN NEGATIVE (NEGATIVE); OPIATES URINE SCREEN NEGATIVE (NEGATIVE); PHENCYCLIDINE URINE SCREEN NEGATIVE (NEGATIVE)
[2022-02-14] MEDS ORDERED: DEXTROSE 50% WATER 50ML SYRINGE IV PRN (07:45)
[2022-02-14] MEDS: INSULIN GLARGINE 100 UNITS/ML SUBCUT SCH ×2 (10:35→22:00)
[2022-02-14] MEDS: INSULIN LISPRO 100 UNITS/ML SUBCUT SCH ×4 (10:35→21:00)
[2022-02-14] MEDS: BLOOD SUGAR DIAGNOSTIC STRIP TEST SCH ×4 (10:35→21:00)
[2022-02-14] MEDS ORDERED: DIPHENHYDRAMINE 50MG/ML VIAL IV PRN (11:30)
[2022-02-14 11:52] VITALS: BP 166/99
[2022-02-14 12:00] VITALS: BP 160/93
[2022-02-14] MEDS ORDERED: KETOROLAC 30MG/ML VIAL IV PRN (13:45)
[2022-02-14] MEDS: AMLODIPINE 10MG TABLET PO SCH (14:45)
[2022-02-14 16:00] VITALS: BP 122/77
[2022-02-14 20:00] VITALS: BP 158/91
[2022-02-14] MEDS ORDERED: HYDROCODONE/ACETAMINOPHEN 10/325MG TABLET PO PRN (21:45)
[2022-02-14] MEDS ORDERED: NALOXONE HCL 0.4MG/ML VIAL IV PRN (21:45)
[2022-02-14] MEDS ORDERED: LORAZEPAM 1MG TABLET PO PRN (21:45)
[2022-02-14] MEDS ORDERED: AMLODIPINE 10MG TABLET PO SCH (21:45)
[2022-02-14] MEDS ORDERED: CLONIDINE 0.1MG TABLET PO PRN (21:45)
[2022-02-14] MEDS: LISINOPRIL 20MG TABLET PO SCH (21:45)
[2022-02-15 04:00] VITALS: BP 181/99
[2022-02-15] MEDS: BLOOD SUGAR DIAGNOSTIC STRIP TEST SCH ×4 (06:05→21:30)
[2022-02-15] MEDS: INSULIN LISPRO 100 UNITS/ML SUBCUT SCH ×4 (06:30→21:00)
[2022-02-15 08:00] VITALS: BP 128/82
[2022-02-15] MEDS: LISINOPRIL 20MG TABLET PO SCH (09:10)
[2022-02-15] MEDS: FAMOTIDINE 20MG TABLET PO SCH (09:10)
[2022-02-15] MEDS: AMLODIPINE 10MG TABLET PO SCH (09:10)
[2022-02-15] MEDS: INSULIN GLARGINE 100 UNITS/ML SUBCUT SCH ×2 (09:34→21:57)
[2022-02-15 12:00] VITALS: BP 154/98
[2022-02-15 16:00] VITALS: BP 156/96
[2022-02-15 20:00] VITALS: BP 133/85
[2022-02-16] VITALS: BP 134/77
[2022-02-16 04:00] VITALS: BP 122/76
[2022-02-16] MEDS: BLOOD SUGAR DIAGNOSTIC STRIP TEST SCH ×2 (06:02→12:10)
[2022-02-16] MEDS: INSULIN LISPRO 100 UNITS/ML SUBCUT SCH ×2 (06:39→12:40)
[2022-02-16 08:00] VITALS: BP 122/80
[2022-02-16] MEDS: LISINOPRIL 20MG TABLET PO SCH (09:00)
[2022-02-16] MEDS: FAMOTIDINE 20MG TABLET PO SCH (09:00)
[2022-02-16] MEDS: AMLODIPINE 10MG TABLET PO SCH (09:00)
[2022-02-16] MEDS: INSULIN GLARGINE 100 UNITS/ML SUBCUT SCH (10:00)
[2022-02-16 12:00] VITALS: BP 147/88
[2022-02-16 18:08] VITALS: BP 128/81
== END 2022-02-16 19:15 | disposition home or self-care (01) | DRG 52 ==
LOC: ER 16:39 → 8WST 23:37 → ENRESERV 02-14 09:42
PROVIDERS: ADMIT Internal Medicine; ATTEND Internal Medicine
DX: G92.8 Other toxic encephalopathy (principal); E11.65 Type 2 diabetes mellitus with hyperglycemia; T40.605A Adverse effect of unspecified narcotics, initial encounter; I10 Essential (primary) hypertension; Z79.899 Other long term (current) drug therapy; Z88.8 Allergy status to other drugs, medicaments and biological substances; Y92.89 Other specified places as the place of occurrence of the external cause
CPT/HCPCS: 36415; 71045; 74176; 80053; 80305; 80307; 80320; 80329; 82010; 82962; 85025; 93005; 99285; J1200; J1815; J1885; J2405; J7030; G0480

== ENCOUNTER 2022-02-18 15:00 | Emergency (ER) | payer MEDICAID ==
[~2022-02-18] VITALS: Ht 177.8 cm; Wt 82.0 kg
[~2022-02-18 15:00] MED LIST changes: -DICY10CA88 MT; -DIPH25CA83 MT; -ONDANSETRON HCL 4MG/2ML INJ ONE
[2022-02-18] MEDS ORDERED: HALOPERIDOL LACTATE 5MG/ML VIAL IM ONE (17:45)
[2022-02-18] MEDS ORDERED: KETOROLAC 15MG/ML VIAL IV ONE (17:45)
[2022-02-18] MEDS ORDERED: SODIUM CHLORIDE 0.9% 1,000 ML IV ONE (17:45)
[2022-02-18 18:05] LABS: BASOPHILS % 0.2 % (0.0-2.0); EOSINOPHILS % 0.1 % (0.0-5.0); HEMATOCRIT. 39.7 % (42.0-52.0); HEMOGLOBIN. 13.7 g/dL (14.0-18.0); MEAN CORPUSCULAR HEMOGLOBIN 28.2 pg (28.0-32.0); MEAN CORPUSCULAR VOLUME 81.8 fL (80.0-94.0); MEAN PLATELET VOLUME 7.3 fl (7.4-10.4); MONOCYTES % 4.5 % (2.0-8.0); NEUTROPHILS % 78.2 % (40.0-76.0); PLATELET 328 x1000/uL (130-400); RED BLOOD CELL COUNT 4.85 mill/uL (4.7-6.1); RED CELL DISTRIBUTION WIDTH 14.2 % (11.6-14.6)
[2022-02-18 18:08] LABS: CHLORIDE 97 mEq/L (98-107)
[2022-02-18] MEDS ORDERED: DIPHENHYDRAMINE 50MG/ML VIAL IV ONE (18:45)
[2022-02-18] MEDS ORDERED: ONDANSETRON HCL 4MG/2ML INJ IV ONE (19:00)
[2022-02-18] MEDS ORDERED: DICY10CA88 MT (20:35)
[2022-02-18] MEDS ORDERED: DIPH25CA83 MT (20:35)
[2022-02-18 20:47] VITALS: BP 132/88
== END 2022-02-18 21:06 | disposition home or self-care (01) ==
LOC: ER 15:00
DX: R10.9 Unspecified abdominal pain (principal); E11.9 Type 2 diabetes mellitus without complications; R11.2 Nausea with vomiting, unspecified; E86.0 Dehydration; I10 Essential (primary) hypertension; Z88.8 Allergy status to other drugs, medicaments and biological substances
CPT/HCPCS: 36415; 80053; 82962; 83690; 85025; 96361; 96374; 96375; 99284; J1200; J1885; J2405; J7030

== ENCOUNTER → 2022-02-18 | Emergency (ER) | payer MEDICAID ==
[~2022-02-18] MED LIST changes: +DICY10CA88 MT; +DIPH25CA83 MT; +ONDANSETRON HCL 4MG/2ML INJ ONE
[2022-02-18 12:04] LABS: BASOPHILS % 0.3 % (0.0-2.0); EOSINOPHILS % 0.7 % (0.0-5.0); HEMATOCRIT. 42.4 % (42.0-52.0); HEMOGLOBIN. 14.6 g/dL (14.0-18.0); LYMPHOCYTES % 30.1 % (20.0-50.0); MEAN CORPUSCULAR HEMOGLOBIN 28.1 pg (28.0-32.0); MEAN CORPUSCULAR VOLUME 81.9 fL (80.0-94.0); MEAN PLATELET VOLUME 7.8 fl (7.4-10.4); MONOCYTES % 5.8 % (2.0-8.0); NEUTROPHILS % 63.1 % (40.0-76.0); PLATELET 337 x1000/uL (130-400); RED BLOOD CELL COUNT 5.17 mill/uL (4.7-6.1); RED CELL DISTRIBUTION WIDTH 14.3 % (11.6-14.6)
[2022-02-18 13:08] LABS: CHLORIDE 96 mEq/L (98-107)
== END ==
LOC: ER 11:52
DX: R10.9 Unspecified abdominal pain (principal); E11.9 Type 2 diabetes mellitus without complications; I10 Essential (primary) hypertension; Z88.8 Allergy status to other drugs, medicaments and biological substances; Z87.891 Personal history of nicotine dependence
CPT/HCPCS: 36415; 74176; 80053; 83690; 85025; 99284; J2405

== ENCOUNTER 2024-01-01 14:02 | Inpatient (IN) | payer SELFPAY ==
[~2024-01-01] VITALS: Ht 177.8 cm; Wt 70.0 kg
[~2024-01-01 14:02] MED LIST changes: +DICY-18 MT; +DIPH25CA83 MT
[2024-01-01] MEDS: SODIUM CHLORIDE 0.9% 1,000 ML IV ONE (15:01)
[2024-01-01] MEDS: HALOPERIDOL LACTATE 5MG/ML VIAL IM ONE (15:01)
[2024-01-01 15:10] LABS: CARBON DIOXIDE 24 mEq/L (21-32); CHLORIDE 103 mEq/L (98-107); POTASSIUM 4.6 mEq/L (3.5-5.1); SODIUM 134 mEq/L (136-145)
[2024-01-01 15:11] LABS: CALCIUM 9.1 mg/dL (8.7-10.4)
[2024-01-01 15:13] LABS: BASOPHILS % 0.3 % (0.0-2.0); EOSINOPHILS % 0.1 % (0.0-5.0); HEMATOCRIT. 42.9 % (42.0-52.0); HEMOGLOBIN. 14.5 g/dL (14.0-18.0); LYMPHOCYTES % 21.1 % (20.0-50.0); MEAN CORPUSCULAR HEMOGLOBIN 28.2 pg (28.0-32.0); MEAN CORPUSCULAR HGB CONC 33.8 g/dL (31.0-37.0); MEAN CORPUSCULAR VOLUME 83.6 fL (80.0-94.0); MEAN PLATELET VOLUME 8.5 fl (7.4-10.4); MONOCYTES % 3.1 % (2.0-8.0); NEUTROPHILS % 75.4 % (40.0-76.0); PLATELET 294 x1000/uL (130-400); RED BLOOD CELL COUNT 5.13 mill/uL (4.7-6.1); RED CELL DISTRIBUTION WIDTH 13.5 % (11.6-14.6); WHITE BLOOD COUNT 8.1 x1000/uL (4.5-11.0)
[2024-01-01 15:15] LABS: CREATININE 1.1 mg/dL (0.6-1.3)
[2024-01-01 15:16] LABS: GLUCOSE 350 mg/dL (70-105); UREA NITROGEN BLOOD 18 mg/dL (9-23)
[2024-01-01 15:18] LABS: ALANINE AMINOTRANSFERASE 16 IU/L (10-49); ALBUMIN 4.2 g/dL (3.2-4.8); ASPARTATE AMINOTRANSFERASE 27 IU/L (<34); BILIRUBIN DIRECT 0.2 mg/dL (<=3.0)
[2024-01-01] MEDS: CHLORPROMAZINE HCL 25MG/1ML AMP IM ONE (16:02)
[2024-01-01 16:16] LABS: CLARITY URINE CLEAR (CLEAR); COLOR URINE YELLOW (YELLOW); GLUCOSE URINE 3+ (NEGATIVE); KETONES URINE TRACE (NEGATIVE); LEUKOCYTE ESTERASE URINE NEGATIVE (NEGATIVE); NITRITE URINE NEGATIVE (NEGATIVE); OCCULT BLOOD URINE 2+ (NEGATIVE); PH URINE 5.5 (4.5-8.0); PROTEIN URINE 3+ (NEGATIVE); SPECIFIC GRAVITY URINE 1.029 (1.005-1.030); UROBILINOGEN URINE 0.2 E.U./dL (0.2-1.0)
[2024-01-01 16:38] LABS: BACTERIA URINE FEW; SQUAMOUS EPITHELIAL CELL URINE NONE SEEN /lpf (RARE/1+); WBC URINE NONE SEEN /hpf (0-2); YEAST URINE NONE SEEN
[2024-01-01] MEDS: KETOROLAC 30MG/ML VIAL IV ONE (18:36)
[2024-01-01] MEDS: ONDANSETRON HCL 4MG/2ML INJ IV ONE (21:15)
[2024-01-01] MEDS: TRAMADOL 50MG TABLET PO NR (23:46)
[2024-01-02] MEDS ORDERED: ACETAMINOPHEN 325MG TABLET PO PRN ×2 (01:00)
[2024-01-02] MEDS ORDERED: GUAIFENESIN 200MG/10ML SUGAR FREE UDC PO PRN (01:00)
[2024-01-02] MEDS ORDERED: DOCUSATE SODIUM 100MG CAPSULE PO PRN (01:00)
[2024-01-02] MEDS ORDERED: MAGNESIUM/ALUMINUM HYDROXIDE/SIMETHICONE 30ML UDC PO PRN (01:00)
[2024-01-02] MEDS ORDERED: IPRATROPIUM/ALBUTEROL 0.5-3(2.5)MG/3ML NEB HHN PRN (01:00)
[2024-01-02] MEDS ORDERED: DEXTROSE 50% WATER 50ML SYRINGE IV PRN (01:00)
[2024-01-02] MEDS ORDERED: CLONIDINE 0.1MG TABLET PO PRN (01:00)
[2024-01-02] MEDS ORDERED: DICYCLOMINE HCL 10MG CAPSULE PO PRN (01:30)
[2024-01-02 01:50] LABS: PHOSPHORUS 5.2 mg/dL (2.5-4.9)
[2024-01-02] MEDS: ONDANSETRON HCL 4MG/2ML INJ IV PRN (01:51)
[2024-01-02] MEDS: PANTOPRAZOLE SODIUM 40 MG/VIAL IV NR (02:25)
[2024-01-02] MEDS: LACTATED RINGERS 1,000 ML IV SCH (02:26)
[2024-01-02] MEDS: CEFTRIAXONE 1GM/50ML 50 ML IV SCH (02:40)
[2024-01-02] MEDS: BLOOD SUGAR DIAGNOSTIC STRIP TEST SCH (06:09)
[2024-01-02] MEDS: AMLODIPINE 10MG TABLET PO SCH (09:00)
[2024-01-02] MEDS ORDERED: BENAZEPRIL 10MG TABLET PO SCH (09:00)
[2024-01-02] MEDS ORDERED: FAMOTIDINE 20MG TABLET PO SCH (09:00)
[2024-01-02] MEDS: INSULIN LISPRO 100 UNITS/ML SUBCUT SCH (10:48)
[2024-01-02] MEDS: SODIUM CHLORIDE 0.9% 1,000 ML IV ONE (16:30)
[2024-01-02 17:11] LABS: CHLORIDE 102 mEq/L (98-107); POTASSIUM 4.6 mEq/L (3.5-5.1); SODIUM 138 mEq/L (136-145)
[2024-01-02 17:12] LABS: CARBON DIOXIDE 28 mEq/L (21-32)
[2024-01-02 17:17] LABS: TROPONIN I HIGH SENSITIVITY 7 ng/L (3.0-53)
[2024-01-02 17:18] LABS: UREA NITROGEN BLOOD 32 mg/dL (9-23)
[2024-01-02 17:20] LABS: AMMONIA < 17 uMol/L (<32)
[2024-01-02 17:32] LABS: BETA HYDROXYBUTYRATE 0.7 mMol/L (0.0-0.3)
[2024-01-02 17:57] LABS: CREATININE 2.1 mg/dL (0.6-1.3); ETHANOL BLOOD < 10 mg/dL (<10)
[2024-01-02 17:58] LABS: GLUCOSE 417 mg/dL (70-105)
[2024-01-02 18:14] LABS: BG BASE EXCESS 3.5 mmol/L (-2.0-2.0); BG CARBOXYHEMOGLOBIN 0.6 % (0.5-1.5); BG DEOXYHEMOGLOBIN 4.9 % (0.0-5.0); BG FRACTION INSPIRED OXYGEN 21; BG HCO3 ACT 28.7 mmol/L (22.0-26.0); BG METHEMOGLOBIN 0.3 % (0.0-1.5); BG OXYGEN SATURATION 95.1 % (92.0-98.5); BG OXYHEMOGLOBIN 94.2 % (94.0-97.0); BG PCO2 45.3 mmHg (35.0-45.0); BG PH 7.419 (7.350-7.450); BG PO2 74.2 mmHg (75.0-100.0); BG SAMPLE SITE RIGHT RADIAL; BG TOTAL HEMOGLOBIN 14.4 g/dL (12.0-18.0); BG VENT MODE ROOM AIR
[2024-01-02] MEDS ORDERED: INSULIN REGULAR (HUMULIN R) 1000UNITS/10ML VIAL IV NR (18:45)
[2024-01-02 20:00] VITALS: BP 177/103; PULSE 97; RESP 20; TEMP 97.5
[2024-01-02] MEDS ORDERED: ONDANSETRON HCL 4MG/2ML INJ IV PRN (21:00)
[2024-01-02] MEDS: INSULIN GLARGINE 100 UNITS/ML SUBCUT SCH (21:17)
[2024-01-02 21:30] LABS: TROPONIN I HIGH SENSITIVITY 8 ng/L (3.0-53)
[2024-01-02] MEDS: PANTOPRAZOLE SODIUM 40 MG/VIAL IV SCH (21:39)
[2024-01-02] MEDS: MORPHINE SULFATE 2 MG/ML INJ (NOT FOR IM USE) IV NR (21:42)
[2024-01-03] MEDS ORDERED: CEFTRIAXONE 1GM/50ML 50 ML IV SCH (01:00)
[2024-01-03 07:01] LABS: POTASSIUM 4.4 mEq/L (3.5-5.1)
[2024-01-03 07:02] LABS: CALCIUM 8.4 mg/dL (8.7-10.4)
[2024-01-03 07:04] LABS: BASOPHILS % 0.2 % (0.0-2.0); EOSINOPHILS % 0.1 % (0.0-5.0); HEMATOCRIT. 40.7 % (42.0-52.0); HEMOGLOBIN. 13.6 g/dL (14.0-18.0); MEAN CORPUSCULAR HEMOGLOBIN 28.3 pg (28.0-32.0); MEAN CORPUSCULAR HGB CONC 33.4 g/dL (31.0-37.0); MEAN CORPUSCULAR VOLUME 84.9 fL (80.0-94.0); MEAN PLATELET VOLUME 8.6 fl (7.4-10.4); MONOCYTES % 3.5 % (2.0-8.0); NEUTROPHILS % 82.2 % (40.0-76.0); PLATELET 287 x1000/uL (130-400); RED CELL DISTRIBUTION WIDTH 13.4 % (11.6-14.6); WHITE BLOOD COUNT 9.7 x1000/uL (4.5-11.0)
[2024-01-03 07:06] LABS: CREATININE 1.8 mg/dL (0.6-1.3)
[2024-01-03 07:09] LABS: T4 FREE 1.13 ng/dL (0.89-1.76)
[2024-01-03 07:10] LABS: THYROID STIMULATING HORMONE 0.42 uIU/mL (0.55-4.78)
[2024-01-03 07:30] LABS: INR 0.9; PROTHROMBIN TIME 10.3 sec (9.6-11.0)
[2024-01-03] MEDS: LISINOPRIL 10MG TABLET PO SCH (08:57)
[2024-01-03] MEDS ORDERED: MAGNESIUM/ALUMINUM HYDROXIDE/SIMETHICONE 30ML UDC PO PRN (18:15)
[2024-01-03 19:28] VITALS: BP 129/80; PULSE 81; RESP 18; TEMP 97.8
[2024-01-03] MEDS ORDERED: TRAMADOL 50MG TABLET PO NR (22:00)
[2024-01-03] MEDS ORDERED: DEXTROSE 50% WATER 50ML SYRINGE IV PRN (22:00)
[2024-01-03] MEDS: INSULIN LISPRO 100 UNITS/ML SUBCUT SCH (23:42)
[2024-01-04] MEDS ORDERED: METOCLOPRAMIDE HCL 10MG/2ML VIAL IV SCH
[2024-01-04] MEDS ORDERED: INSULIN LISPRO 100 UNITS/ML SUBCUT SCH (07:50)
[2024-01-04] MEDS ORDERED: AMLO10TA80 MT (10:25)
[2024-01-04] MEDS ORDERED: BENA10TA74 MT (10:25)
[2024-01-04 12:00] VITALS: BP 174/111; PULSE 79; RESP 18; TEMP 97.9
[2024-01-04 13:46] VITALS: BP 174/111; PULSE 18; TEMP 97.9; O2SAT 97
== END 2024-01-04 16:12 | disposition home or self-care (01) | DRG 253 ==
LOC: ER 14:02 → 5WST 01-02 01:05 → 6EST 01-02 12:05
PROVIDERS: ADMIT Internal Medicine; ATTEND Internal Medicine
DX: K92.0 Hematemesis (principal); N17.9 Acute kidney failure, unspecified; E83.39 Other disorders of phosphorus metabolism; K31.84 Gastroparesis; E11.65 Type 2 diabetes mellitus with hyperglycemia; E11.43 Type 2 diabetes mellitus with diabetic autonomic (poly)neuropathy; E78.00 Pure hypercholesterolemia, unspecified; I10 Essential (primary) hypertension; I16.9 Hypertensive crisis, unspecified; Z79.4 Long term (current) use of insulin; Z91.199 Patient's noncompliance with other medical treatment and regimen due to unspecified reason
CPT/HCPCS: 36415; 36600; 74176; 80048; 80061; 80076; 80320; 81003; 82010; 82140; 82375; 82805; 82962; 83036; 83735; 83930; 84100; 84439; 84443; 84484; 85025; 85044; 93005; 99285; J0696; J1630; J1815; J1885; J2270; J2405; J3230; J7120; G0480